=== PATIENT | male | born 1990 | race American Indian/Alaskan Native ===

== ENCOUNTER 2021-05-09 07:01 | Emergency (ER) | payer SELFPAY ==
[2021-05-09 07:20] VITALS: BP 165/111
--- NOTE | 2021-05-09 07:47 | Emergency Department Report ---
ED Abdominal Pain HPI - General Chief Complaint: Abdominal Pain Stated Complaint: STOMACHACHE HEADACHE COLD SWEATS NAUSEA Time Seen by Provider: 05/09/21 07:39 Source: patient Mode of arrival: Ambulatory Limitations: No Limitations - History of Present Illness Initial Comments: This is a 31-year-old -[place] male who presents to the emergency room with lower abdominal pain for 3 to 4 days. Patient reports chills with associated symptoms. Patient states when he attempts to eat something he cannot keep it down. He denies taking anything for symptomatic relief. He denies recent travel or any unusual food intake. He denies fever, diarrhea, hematuria, urinary frequency, urinary urgency, dysuria, chest pain, or weakness. MD Complaint: abdominal pain Onset/Timin -: days(s) Location: LLQ, RLQ Radiation: none Severity: moderate Severity scale (0 -10): 6 Quality: aching Consistency: intermittent Improves With: nothing Worsens With: nothing Associated Symptoms: chills. denies: nausea, vomiting, diarrhea, fever, constipation, dysuria, hematemesis, hematuria - Related Data Allergies Allergy/AdvReac Type Severity Reaction Status Date / Time No Known Allergies Allergy Verified 05/09/21 07:21 ED Review of Systems ROS: Stated complaint: STOMACHACHE HEADACHE COLD SWEATS NAUSEA Other details as noted in HPI Constitutional: denies: chills, fever Respiratory: denies: cough, shortness of breath, wheezing Cardiovascular: denies: chest pain, palpitations Gastrointestinal: abdominal pain (Diffuse). denies: nausea, diarrhea Genitourinary: denies: urgency, dysuria Musculoskeletal: denies: back pain, joint swelling, arthralgia Neurological: denies: headache, weakness, paresthesias Psychiatric: denies: anxiety, depression ED Past Medical Hx - Past Medical History Previous Medical History?: Yes Hx Hypertension: Yes - Surgical History Past Surgical History?: No ED Physical Exam - General Limitations: No Limitations General appearance: alert, in no apparent distress - Respiratory Respiratory exam: Present: normal lung sounds bilaterally. Absent: respiratory distress - Cardiovascular Cardiovascular Exam: Present: regular rate, normal rhythm. Absent: systolic murmur, diastolic murmur, rubs, gallop - GI/Abdominal GI/Abdominal exam: Present: soft, tenderness (Right lower quadrant and left lower quadrant TTP), normal bowel sounds. Absent: guarding, rebound, rigid, mass - Back Exam Back exam: Absent: CVA tenderness (R), CVA tenderness (L) - Neurological Exam Neurological exam: Present: alert, oriented X3, normal gait - Psychiatric Psychiatric exam: Present: normal affect, normal mood - Skin Skin exam: Present: warm, dry, intact, normal color. Absent: rash ED Course Vital Signs 05/09/21 05/09/21 07:19 11:19 Temperature 98 F 98.3 F Pulse Rate 91 H 80 Respiratory 16 16 Rate Blood Pressure 165/111 [Left] O2 Sat by Pulse 99 97 Oximetry ED Medical Decision Making - Lab Data Result diagrams: 05/09/21 08:06 05/09/21 08:06 Lab Results 05/09/21 05/09/21 05/09/21 Range/Units 08:06 08:06 11:46 WBC 2.8 L (4.5-11.0) K/mm3 RBC 6.22 H (3.65-5.03) M/mm3 Hgb 16.5 H (11.8-15.2) gm/dl Hct 49.6 H (35.5-45.6) % MCV 80 L (84-94) fl MCH 27 L (28-32) pg MCHC 33 (32-34) % RDW 14.4 (13.2-15.2) % Plt Count 169 (140-440) K/mm3 Lymph % (Auto) 43.1 H (13.4-35.0) % [place] % (Auto) 12.9 H (0.0-7.3) % Eos % (Auto) 0.3 (0.0-4.3) % Baso % (Auto) [employer] Lymph # (Auto) 1.2 (1.2-5.4) K/mm3 [place] # (Auto) 0.4 (0.0-0.8) K/mm3 Eos # (Auto) 0.0 (0.0-0.4) K/mm3 Baso # (Auto) 0.0 (0.0-0.1) K/mm3 Seg Neutrophils % 42.8 (40.0-70.0) % Seg Neutrophils # 1.2 L (1.8-7.7) K/mm3 Sodium 137 (137-145) mmol/L Potassium 3.7 (3.6-5.0) mmol/L Chloride 98.2 (98-107) mmol/L Carbon Dioxide 31 H (22-30) mmol/L Anion Gap 12 mmol/L BUN 11 (9-20) mg/dL Creatinine 0.9 (0.8-1.3) mg/dL Estimated GFR > 60 ml/min BUN/Creatinine Ratio 12 % Glucose 96 (75-100) mg/dL Calcium 9.5 (8.4-10.2) mg/dL Lipase 16 (13-60) units/L Urine Color Yellow (Yellow) Urine Turbidity Clear (Clear) Urine pH 6.0 (5.0-7.0) Ur Specific [place] 1.021 (1.003-1.030) Urine Protein 30 mg/dl (Negative) mg/dL Urine Glucose (UA) Neg (Negative) mg/dL Urine Ketones 20 (Negative) mg/dL Urine Blood Neg (Negative) Urine Nitrite Neg (Negative) Urine Bilirubin Neg (Negative) Urine Urobilinogen 2.0 (<2.0) mg/dL Ur Leukocyte Esterase Neg (Negative) Urine WBC (Auto) 2.0 (0.0-6.0) /HPF Urine RBC (Auto) 2.0 (0.0-6.0) /HPF U Epithel Cells (Auto) 2.0 (0-13.0) /HPF Urine Mucus 2+ /HPF Vital Signs 05/09/21 05/09/21 07:19 11:19 Temperature 98 F 98.3 F Pulse Rate 91 H 80 Respiratory 16 16 Rate Blood Pressure 165/111 [Left] O2 Sat by Pulse 99 97 Oximetry - Radiology Data Radiology results: report reviewed CT ABDOMEN AND PELVIS WITH CONTRAST HISTORY: LLQ RLQ pain OMNI 300 100 ML COMPARISON: None TECHNIQUE: Routine abdominal and pelvic CT exam performed following intravenous contrast administration.. All CT scans at this location are performed using CT dose reduction for ALARA by means of automated exposure control. FINDINGS: CT ABDOMEN: Lung Bases: There is calcified granuloma in the posterior right lower lobe. Liver: No significant abnormality. Biliary: No significant abnormality. Spleen: No significant abnormality. Unenlarged. Pancreas: No significant abnormality. Adrenals: No significant abnormality. Kidneys: No significant abnormality. Lymphatics: No lymphadenopathy. Vasculature: No significant abnormality. Bowel/Peritoneum: No significant abnormality. No free air. No free fluid. Normal appendix. CT PELVIC: : No significant abnormality. Lymphatics: No lymphadenopathy. Osseous Structures: No aggressive appearing osseous lesions. Additional Findings: None IMPRESSION: 1. No significant abnormality. Signer Name: Jose Rafael Larson MD Signed: 05/09/2021 12:06 PM Workstation Name: [email or web address] - Medical Decision Making 31 y.o. male that presents with URI symptoms. Patient examined by me and stable. No distress noted. Vitals normal. Patient is otherwise healthy patient with suspected COVID-19 symptoms. He denies shortness of breath, chest pain, weakness, headache, or fever. No focal changes or uvula deviation to be concern for [employer]. Leukocytosis findings on labs. CT of abdomen and pelvis with no acute findings. There is low suspicion of influenza, pneumonia, strep throat, or sinusitis. There are no indications for antibiotics at this time. Instructed to get a COVID-19 test on discharge from the list provided. Instructed to continue [id number] cold and flu medications, increase fluid intake, and wash hands frequently. Discharged home stable with strict return instructions. Follow up with Primary Care Provider in 2-3 days. Critical care attestation.: If time is entered above; I have spent that time in minutes in the direct care of this critically ill patient, excluding procedure time. ED Disposition Clinical Impression: Suspected COVID-19 virus infection Abdominal pain Qualifiers: Abdominal location: generalized Qualified Code(s): R10.84 - Generalized abdominal pain Disposition: 01 HOME / SELF CARE / HOMELESS Is pt being admited?: No Condition: Stable Instructions: Abdominal Pain, Adult Additional Instructions: Quarantine at home until you get Covid tested with results. Referrals: [facility] [Provider Group] - 3-5 Days [facility] [place] [Outside] - 3-5 Days Forms: Work/School Release Form(ED) Time of Disposition: 12:58
[2021-05-09 09:16] LABS: BUN/Creatinine Ratio 12; Blood Urea Nitrogen 11 mg/dL (9-20); Calcium 9.5 mg/dL (8.4-10.2); Hemolysis Index 14
[2021-05-09 09:29] LABS: Eosinophils % (Auto) 0.3 % (0.0-4.3); Hematocrit 49.6 % (35.5-45.6); Hemoglobin 16.5 gm/dl (11.8-15.2); Lymphocytes # (Auto) 1.2 K/mm3 (1.2-5.4); Lymphocytes % (Auto) 43.1 % (13.4-35.0); Mean Corpuscular HGB Conc 33 % (32-34); Mean Corpuscular Volume 80 fl (84-94); Monocytes # (Auto) 0.4 K/mm3 (0.0-0.8); Monocytes % (Auto) 12.9 % (0.0-7.3); Platelet Count 169 K/mm3 (140-440); Red Blood Count 6.22 M/mm3 (3.65-5.03); Red Cell Distribution Width 14.4 % (13.2-15.2)
[2021-05-09] MEDS ORDERED: SODIUM CHLORIDE 0.9% 1000 ML 1,000 ML IV ONE (10:31)
[2021-05-09 12:10] LABS: Bilirubin,Urine NEG (Negative); Blood,Urine NEG (Negative); Color,Urine Yellow (Yellow); Mucus,Urine 2+ /HPF
--- NOTE | 2021-05-09 12:10 | Cat Scan Report ---
CT ABDOMEN AND PELVIS WITH CONTRAST HISTORY: LLQ RLQ pain OMNI 300 100 ML COMPARISON: None TECHNIQUE: Routine abdominal and pelvic CT exam performed following intravenous contrast administrat ion.. All CT scans at this location are performed using CT dose reduction for ALARA by means of autom ated exposure control. FINDINGS: CT ABDOMEN: Lung Bases: There is calcified granuloma in the posterior right lower lobe. Liver: No significant abnormality. Biliary: No significant abnormality. Spleen: No significant abnormality. Unenlarged. Pancreas: No significant abnormality. Adrenals: No significant abnormality. Kidneys: No significant abnormality. Lymphatics: No lymphadenopathy. Vasculature: No significant abnormality. Bowel/Peritoneum: No significant abnormality. No free air. No free fluid. Normal appendix. CT PELVIC: : No significant abnormality. Lymphatics: No lymphadenopathy. Osseous Structures: No aggressive appearing osseous lesions. Additional Findings: None IMPRESSION: 1. No significant abnormality. Signer Name: Jose Rafael Larson MD Signed: 05/09/2021 12:06 PM Workstation Name: [id number]
== END 2021-05-09 13:24 | disposition home or self-care (01) ==
LOC: ED 07:01
DX: R10.84 Generalized abdominal pain (principal); Z20.822 Contact with and (suspected) exposure to COVID-19; I10 Essential (primary) hypertension
CPT/HCPCS: 36415; 74177; 80048; 81001; 83690; 85025; 96360; 99284; J7030; Q9967